=== PATIENT | male | born 1945 | race Caucasian/White ===

== ENCOUNTER 2017-10-23 14:01 | Inpatient (IN) ==
[2017-10-23] MEDS ORDERED: IPRATROPIUM/ALBUTEROL 3 ML AMPUL.NEB NEB ONE ×2 (14:12→14:16)
--- NOTE | 2017-10-23 14:19 | Emergency Department Note ---
General Adult HPI - General Chief complaint: Cold/Flu Symptoms Stated complaint: coughx 2 weeks, fever Time Seen by Provider: 10/23/17 14:02 Source: patient Mode of arrival: ambulatory Limitations: no limitations - History of Present Illness HPI Narrative: 72-year-old male presents with cough 2 weeks. He states he self diagnosed and thinks he has dengue fever. He has sinus congestion sinus pressure and has had low-grade fevers. He recently came back from the [facility] and before he went to the [facility] he had a cold along with his . Now he has had a cough that is stuck around for 2 weeks. He denies any shortness of breath. He states he has sinus pressure as well. He denies any lung issues in the past. He does have a fever of 100.9. - Related Data Home Medications Medication Instructions Recorded Confirmed ranitidine 150 mg tablet 150 mg PO QHS 05/13/16 10/15/17 vit C-vit Q-[id number] ox-lutein 1 cap PO QDAY cap 05/13/16 10/15/17 226 mg-200 unit-5 mg-0.8 mg capsule Previous Rx's Medication Instructions Recorded sodium bicarbonate 325 mg tablet 325 mg PO BID #180 tab 05/18/17 atorvastatin 80 mg tablet 80 mg PO QPM #90 tab 06/01/17 amlodipine 10 mg tablet 10 mg PO QDAY #90 tab 08/06/17 lisinopril 10 mg tablet 10 mg PO QDAY #90 tab 08/30/17 Allergies Allergy/AdvReac Type Severity Reaction Status Date / Time No Known Drug Allergies Allergy Verified 10/15/17 08:43 CT contrast AdvReac Intermediate Rash Uncoded 10/18/17 20:07 Review of Systems All systems ED: reviewed and negative except as stated. Past Medical History - Past Medical History Medical history: Reports: hyperlipidemia, hypertension, renal disease Psychiatric history: Reports: no psych history Surgical history ED: Reports: non-contributory Family history: Reports: non-contributory - Social History smoking status: Never smoker Alcohol use: Reports: None Drug use: Reports: none Physical Exam Limitations: no limitations General appearance: alert, in no apparent distress Head: atraumatic Eye: Present: normal appearance. Absent: conjunctival injection Neck: Present: normal inspection, full ROM Chest: Present: normal inspection, symmetric chest wall rise Respiratory: Present: other (Mild decrease in the lower lobes) Cardiovascular: Present: regular rate, normal heart sounds Abdominal: Present: soft, normal bowel sounds. Absent: tenderness Extremities: Present: normal inspection, full ROM Neurological: Present: alert, oriented X3 Psychiatric: Present: normal affect, normal mood Skin: Present: warm, dry, intact Course Course Narrative: Patient will admitted for pneumonia, fever high, procalcitonin 0.39 Vital Signs Temperature 100.9 F H 10/23/17 14:02 Pulse Rate 90 10/23/17 14:02 Respiratory Rate 16 10/23/17 14:02 Blood Pressure 158/61 10/23/17 14:02 Pulse Oximetry (%) 96 10/23/17 14:02 Temperature 102.4 F H 10/23/17 15:47 Pulse Rate 100 H 10/23/17 14:27 Respiratory Rate 18 10/23/17 14:27 Blood Pressure 158/61 10/23/17 14:02 Pulse Oximetry (%) 96 10/23/17 14:02 Medical Decision Making - Medical Records Medical records reviewed: Yes I reviewed the patient's medical records. ESR yesterday was 91 and CRP was 5 - Lab Data Lab results reviewed: Yes I reviewed the patient's lab results. Result diagrams: 10/23/17 14:30 10/23/17 14:30 Lab Results 10/23/17 10/23/17 10/23/17 Range/Units 14:30 14:30 14:30 WBC 9.2 (4.5-11.0) K/mcL RBC 3.98 L (4.50-5.90) M/mcL Hgb 11.9 L (13.5-16.5) g/dL Hct 35.2 L (41.0-55.0) % MCV 88.3 (80.0-100.0) fL MCH 29.8 (26.0-34.0) pg MCHC 33.8 (31.0-36.0) g/dL RDW 15.2 H (11.5-14.5) % Plt Count 222 (140-440) K/mcL MPV 7.7 (7.4-10.4) fL Total Counted 100 Seg Neutrophils % 83 H (38-78) % Band Neutrophils % 1 (0-10) % Lymphocytes % 4 L (15-49) % Monocytes % (Manual) 8 (1-12) % Reactive Lymphocytes 4 H (0-2) % Platelet Estimate Normal (NORMAL) RBC Morphology Normal (NORMAL) VBG Lactic Acid 1.8 (0.5-2.2) mmol/L Sodium 127 L (133-145) mmol/L Potassium 4.7 (3.3-5.1) mmol/L Chloride 92 L (96-108) mmol/L Carbon Dioxide 19 L (22-30) mmol/L Anion Gap 16.0 (8-16) BUN 41 H (8-23) mg/dl Creatinine 2.1 H (0.7-1.2) mg/dl GFR Calculation 30 Glucose 131 H (70-105) mg/dL Calcium 9.2 (8.6-10.4) mg/dl Total Bilirubin 0.7 (0.0-1.0) mg/dL AST 40 H (0-37) U/l ALT 24 (0-40) U/l Alkaline Phosphatase 107 (39-117) U/L Total Protein 7.1 (5.9-8.4) gm/dL Albumin 4.1 (3.2-5.2) gm/dL Globulin 3.0 (2.2-3.7) gm/dL Albumin/Globulin Ratio 1.4 (1.0-2.3) Procalcitonin (<0.10) ng/mL 10/23/17 Range/Units 14:30 WBC (4.5-11.0) K/mcL RBC (4.50-5.90) M/mcL Hgb (13.5-16.5) g/dL Hct (41.0-55.0) % MCV (80.0-100.0) fL MCH (26.0-34.0) pg MCHC (31.0-36.0) g/dL RDW (11.5-14.5) % Plt Count (140-440) K/mcL MPV (7.4-10.4) fL Total Counted Seg Neutrophils % (38-78) % Band Neutrophils % (0-10) % Lymphocytes % (15-49) % Monocytes % (Manual) (1-12) % Reactive Lymphocytes (0-2) % Platelet Estimate (NORMAL) RBC Morphology (NORMAL) VBG Lactic Acid (0.5-2.2) mmol/L Sodium (133-145) mmol/L Potassium (3.3-5.1) mmol/L Chloride (96-108) mmol/L Carbon Dioxide (22-30) mmol/L Anion Gap (8-16) BUN (8-23) mg/dl Creatinine (0.7-1.2) mg/dl GFR Calculation Glucose (70-105) mg/dL Calcium (8.6-10.4) mg/dl Total Bilirubin (0.0-1.0) mg/dL AST (0-37) U/l ALT (0-40) U/l Alkaline Phosphatase (39-117) U/L Total Protein (5.9-8.4) gm/dL Albumin (3.2-5.2) gm/dL Globulin (2.2-3.7) gm/dL Albumin/Globulin Ratio (1.0-2.3) Procalcitonin 0.39 (<0.10) ng/mL - Radiology Data Radiology results reviewed: Yes I reviewed the patient's radiology results. Chest x-ray shows 3 new opacities versus masses in his lungs. Will get a CT without contrast due to his allergy and poor renal function to assess Multiple nodular infiltrates in both lungs, affecting the right side greater than left. This is most likely due to pneumonia. Collagen vascular disease such as Isaias's granulomatosis is another consideration. Metastasis are unlikely. Very small right-sided pleural effusion Disposition Pt seen by [employer]/PA only: No Clinical Impression: Pneumonia Disposition: Xfer As Inpt ([facility]) Condition: Fair Referrals: Jacky Villegas MD [Primary Care Provider] -
[2017-10-23] MEDS ORDERED: 0.9 % SODIUM CHLORIDE 1,000 ML IV ONE (14:40)
[2017-10-23] MEDS ORDERED: ACETAMINOPHEN 325 MG TABLET PO ONE (14:57)
[2017-10-23 15:16] LABS: Mean Cell Volume 88.3 fL (80.0-100.0); Mean Corpuscular HGB Conc 33.8 g/dL (31.0-36.0); Mean Corpuscular Hemoglobin 29.8 pg (26.0-34.0); Platelet Count 222 K/mcL (140-440); RBC 3.98 M/mcL (4.50-5.90); Red Cell Distribution Width 15.2 % (11.5-14.5)
[2017-10-23] MEDS ORDERED: FLUCONAZOLE 100 MG TABLET PO ONE (15:19)
[2017-10-23] MEDS ORDERED: AZITHROMYCIN 500 MG in DEXTROSE 5% IN WATER 250 ML IV ONE (15:19)
[2017-10-23] MEDS ORDERED: cefTRIAXone 1 GM VIAL IV ONE (15:21)
--- NOTE | 2017-10-23 15:24 | Cat Scan Report ---
CLINICAL INFORMATION: Pulmonary nodule seen on chest x-ray with fever and cough for two weeks COMPARISON: Chest x-ray on 10/23/17 TECHNIQUE: 2.5 mm axial slices were obtained from the lung apices through the bases without intravenous contrast. Sagittal, coronal and axial reformatted images were processed and reviewed at bone, lung and soft tissue windows. 7 mm axial MIP images were also reconstructed. Radiation exposure was limited using FINDINGS: There are several nodular infiltrates in both lungs. Adjacent to the pleura laterally in the right upper lobe there is masslike infiltrate which measures 3.0 x 5.3 cm and contains several air bronchograms. Adjacent to the mediastinum medially in the right upper lobe at the same level there is another peripheral nodular infiltrate measuring 2.4 x 1.6 cm. Contiguous with the major fissure superiorly and laterally in the superior segment of the right lower lobe there is a similar-appearing 3.5 x 3.8 cm nodule with air bronchograms. Centrally in the left upper lobe there is a smaller nodular density with central air bronchograms measuring 1.6 x 2.2 cm. Very small right-sided pleural effusion is present. Adjacent to the pleural effusion and there is a band of consolidated lung parenchyma in the posterior and lateral basal segments. No pathologically enlarged lymph nodes are seen. Largest lymph node contains a fatty central hilum and is located anterior to the right mainstem bronchus. It measures 1.1 x 1.5 cm. The pulmonary arteries cannot be evaluated without contrast but they are not dilated. The heart is normal in size and contour. There is a moderate amount calcified plaque in the coronary arteries. The aorta is normal in caliber. IMPRESSION: Multiple nodular infiltrates in both lungs, affecting the right side greater than left. This is most likely due to pneumonia. Collagen vascular disease such as Isaias's granulomatosis is another consideration. Metastasis are unlikely. Very small right-sided pleural effusion Karin Salinas was called with the results Interpreted and Authenticated by: Facundo Castaneda 10/23/17
--- NOTE | 2017-10-23 15:27 | XRay Report ---
HISTORY: Reason for Exam:cough and fever FINDINGS: There are nodular infiltrates in the right mid and upper thorax. Is also small right-sided pleural effusion. The left lung appears clear. The heart size is normal. No enlarged lymph nodes are detected. IMPRESSION: masslike infiltrates in the right upper lobe. This is probably due to pneumonia. Collagen vascular disease or malignancy are less likely considerations. Interpreted and Authenticated by: Facundo Castaneda 10/23/17
[2017-10-23] MEDS ORDERED: cefTRIAXone 1 GM VIAL IV SCH ×2 (15:30→16:58)
[2017-10-23 15:38] LABS: ALT/SGPT 24 U/l (0-40); Albumin 4.1 gm/dL (3.2-5.2); Albumin/Globulin Ratio 1.4 (1.0-2.3); Alkaline Phosphatase 107 U/L (39-117); Blood Urea Nitrogen 41 mg/dl (8-23)
[2017-10-23] MEDS ORDERED: BENZONATATE 100 MG CAPSULE PO ONE (15:43)
[2017-10-23 15:50] LABS: Band Neutrophils % 1 % (0-10); Lymphocytes % 4 % (15-49); Monocytes % (Manual) 8 % (1-12); Platelet Estimate NORMAL (NORMAL); RBC Morphology NORMAL (NORMAL); Segmented Neutrophils % 83 % (38-78)
--- NOTE | 2017-10-23 16:32 | Internal Med History&Physical ---
Medical - H&P: HPI Patient information: Note initiated : 10/23/17 at 4:29 pm Service Date, if different from initiated Date: [] Patient: Toñito Mary 72 y/o M admitted on for coughx 2 weeks, fever. Chief Complaint: [] History of present illness: Mr. Mary is a 72 year old Male with multiple medical issues, presents to the ER with complaints of cough and fever going on for the last few days. According to the patient, he has not been feeling well for over 2 weeks, he notes he was slightly sick and felt cold during his recent trip to the [facility], he was on a cruise ship. He came back and in the first week of october, he began noticing some cough, this has progressively gotten worse, he notes that this is a dry cough, no aggravating or reliving factors, denies any shortness of breath , or hemoptysis. He admits to having some sinus congestion, he also notes that over the last 3 days he has felt a fever. He therefore presented to the hospital for further evaluation. The patient was seen by his PCP on the of this month for annual wellness exam, he had some blood tests ordered including an ESR, which is high at 91, crp is 5 The patient also notes taht over the last few months he has been dealing with a rash on his back and legs, thinks started between his two surgeris, diagnosed as eczema by dermatology and started on topical steroids which has helped, does not have rash at present Pt has HTN with CKD, protienuria is present, workup neg monoclonal proteins. In the ER the patient as febrile, with temp 102, otherwise stable, vitals, no increaed oxygen needs, Labs showed wbc 9.2 83% N, hb 11.9, decreased from baseline, plat 222 Na 127, Creat is 2.1, baseline is 1.7, his ua done yesterday showed 100 protein , previous ua had neg proteinuria. Patient CXR showed arely infiltrates/ masses, CT shows arely pna, possible wegners. Patient is being admitted ot the hospital for further management. All systems: reviewed and no additional remarkable complaints except as stated ( as per hpi rest neg) Medical - H&P: PMH Medical history: Medical History (Last Reviewed 10/15/17 @ 09:11 by Jacky Villegas MD) Hyperparathyroidism due to renal insufficiency (Chronic) CKD stage G3b/A3, GFR 30-44 and albumin creatinine ratio >300 mg/g (Chronic) Proteinuria (Chronic) Hypertensive renal disease (Chronic) Secondary hyperparathyroidism of renal origin (Chronic) Hyperkalemia (Chronic) Chronic Kidney Disease (Chronic) Skin lesion of face (Resolved) Renal cell carcinoma (Resolved) Malignant neoplasm prostate (Resolved) Overweight (Chronic) Osteoarthritis (Chronic) Hypertension, essential (Chronic) Hyperlipidemia (Chronic) Fracture of finger, closed (Resolved) Erectile dysfunction (Chronic) Colon adenoma (Chronic) Basal cell carcinoma of skin of face (Resolved) Actinic keratosis (Chronic) Surgical history: Past Surgical History (Last Reviewed 10/15/17 @ 09:11 by Jacky Villegas MD) H/O prostatectomy (Resolved 10/28/06) History of nephrectomy (Resolved) H/O colonoscopy (Resolved 08/11/13) History of cholecystectomy (Resolved) History of total left hip arthroplasty (Resolved) History of total right hip arthroplasty (Resolved) Pertinent family history: Family History (Last Reviewed 10/15/17 @ 09:11 by Jacky Villegas MD) Father Alzheimer's disease Diabetes mellitus Mother Malignant neoplasm of breast Medical - H&P: Meds Home Medications Medication Instructions Recorded Confirmed Type ranitidine 150 mg tablet 150 mg PO QHS 05/13/16 10/15/17 History vit C-vit A-sybxht-mukg ox-lutein 1 cap PO QDAY cap 05/13/16 10/15/17 History 226 mg-200 unit-5 mg-0.8 mg capsule sodium bicarbonate 325 mg tablet 325 mg PO BID #180 tab 05/18/17 10/15/17 Rx atorvastatin 80 mg tablet 80 mg PO QPM #90 tab 06/01/17 10/15/17 Rx amlodipine 10 mg tablet 10 mg PO QDAY #90 tab 08/06/17 10/15/17 Rx lisinopril 10 mg tablet 10 mg PO QDAY #90 tab 08/30/17 10/15/17 Rx Allergies Allergy/AdvReac Type Severity Reaction Status Date / Time No Known Drug Allergies Allergy Verified 10/15/17 08:43 CT contrast AdvReac Intermediate Rash Uncoded 10/18/17 20:07 Medical - H&P: Exam - Constitutional Vitals: Temp Pulse Resp BP Pulse Ox 102.4 F H 100 H 18 158/61 96 10/23/17 15:47 10/23/17 14:27 10/23/17 14:27 10/23/17 14:02 10/23/17 14:02 Exam: GENERAL: The patient is a well-developed, well-nourished in no apparent distress. Is alert and oriented x3. VITAL SIGNS: Reviewed and as noted elsewhere. HEENT: Head is normocephalic and atraumatic. Extraocular muscles are intact. Pupils are equal, round, and reactive to light. Nares appeared normal. Mouth appears any without lesions. Mucous membranes are moist. NECK: Normal to inspection, Supple, No lymphadenopathy or thyromegaly. LUNGS: Air entry equal on both sides, no wheezing, crackles or rhonchi noted. No accessory muscles of respiration HEART: Regular rate and rhythm normal, S1 and S2 heard, no Gallop, S3 or Rub Noted, No Gross murmur heard. ABDOMEN: Soft, nontender, and nondistended. Positive bowel sounds. No hepatosplenomegaly was noted. EXTREMITIES: No cyanosis, clubbing, rash, lesions or edema. NEUROLOGIC: Cranial nerves II through XII are grossly intact. Motor and Sensory System Grossly Intact PSYCHIATRIC: Normal affect, Normal Mood. Appropriate Behavior. SKIN: No ulceration or wounds noted, No jaundice, No rash noted. Medical - H&P: Reslt - Labs CBC & Chem 7: 10/23/17 14:30 10/23/17 14:30 Labs: Short CBC 10/23/17 Range/Units 14:30 WBC 9.2 (4.5-11.0) K/mcL Hgb 11.9 L (13.5-16.5) g/dL Hct 35.2 L (41.0-55.0) % Plt Count 222 (140-440) K/mcL BMP 10/23/17 14:30 Sodium 127 L Potassium 4.7 Chloride 92 L Carbon Dioxide 19 L BUN 41 H Creatinine 2.1 H Glucose 131 H Calcium 9.2 Liver Function 10/23/17 Range/Units 14:30 Total Bilirubin 0.7 (0.0-1.0) mg/dL AST 40 H (0-37) U/l ALT 24 (0-40) U/l Alkaline Phosphatase 107 (39-117) U/L Albumin 4.1 (3.2-5.2) gm/dL Medical - H&P: A/P - Narrative A/P Narrative: A/P community Acquired Pneumonia- Pt likely has atypical CAP, on antibiotics for same, rocephin and zithromax. Sputum cx ordered, blood cx pending. The however has atypical pna, involving both lobes, will check mycoplasma, legionella ( recent cruise ship vacation), and strep ur antigen. Patient however also has some h/o skin rash, sinus congestion, proteinuria on ua , elevated esr, which calls to look for an autoimmune process, PCP has already sent [facility], testing, I will add anca, c3 and c4, its seems his seroiologies for hep have been negative in the past, hiv is also negative Will repeat ua and check prot creat ratio. RACHAEL on CKD=- Worsening renal failure, noted increase in urine protein, monitor for now, if worsens consider nephrology consult. NO hematuria on ua yesterday, HTN/HLD- Resume home meds, pt not in severe sepsis or septic shock h/o renal cancer and prostate cancer- psa neg on recent check, he has follow up abdominal mri scheduled DVT hep sq Diet Regular Full code. Social History - Social History household members: spouse housing: house lives independently: Yes marital status: education level: college occupational status: retired occupation: [employer] - Tobacco smoking status: Never smoker - Alcohol alcohol intake frequency: a few times a week
[2017-10-23] MEDS ORDERED: ALBUTEROL SULFATE 2.5 MG/3 ML NEBULIZER NEB PRN (16:58)
[2017-10-23] MEDS ORDERED: ONDANSETRON ODT 4 MG TABLET SL PRN (16:58)
[2017-10-23] MEDS ORDERED: ACETAMINOPHEN 325 MG TABLET PO PRN (16:58)
[2017-10-23] MEDS ORDERED: NALOXONE HCL 0.4 MG/ML VIAL IV PRN (16:58)
[2017-10-23] MEDS ORDERED: MAGNESIUM HYDROXIDE 30 ML ORAL.SUSP PO PRN (16:58)
[2017-10-23 17:21] LABS: Appearance,Urine CLEAR; Bacteria,Urine 0 /hpf (0); Bilirubin,Urine NEG (NEG); Color,Urine YELLOW; Glucose,Urine (UA) NEGATIVE (NEG); Leukocyte Esterase,Urine NEG /uL (NEG); Mucus,Urine FEW /hpf (0); Protein,Urine 100 mg/dL (NEG); Specific Gravity,Urine 1.018 (1.000-1.035); Urine Amorphous Crystals FEW /hpf (0); Urine Blood NEG mg/dL (<0.03); Urine RBC 1 /hpf (0-1); Urine Squamous Epithelial Cell 0 /hpf (0-4); Urine WBC 1 /hpf (0-4)
[2017-10-23 17:27] LABS: Complement C3 154.7 mg/dl (90-180)
--- NOTE | 2017-10-23 17:42 | Emergency Department Note ---
ED Note Addendum Note Addendum: I saw this patient with Karin Salinas PA-C and agree with her evaluation management documentation. I had discussions with both her and Dr. Perez the hospitalist regarding this patient's atypical pneumonia and a picture. In particular I reviewed his laboratory and imaging as well as examined the patient myself-I am concerned that this could be fungal versus atypical and so we gave him a dose of fluconazole as well as other antibiotics here in the ER. Autoimmune disease/rheumatologic disease is also on the differential.
[2017-10-23] MEDS: 0.9 % SODIUM CHLORIDE 1,000 ML IV SCH (18:45)
[2017-10-23] MEDS: BENZONATATE 100 MG CAPSULE PO PRN (19:25)
[2017-10-23] MEDS: ATORVASTATIN 20 MG TABLET PO SCH (21:28)
[2017-10-23] MEDS: SODIUM BICARBONATE 650 MG TABLET PO SCH (21:28)
[2017-10-23] MEDS: FAMOTIDINE 20 MG TABLET PO SCH (21:29)
[2017-10-23] MEDS: LISINOPRIL 10 MG TABLET PO SCH (21:29)
[2017-10-23] MEDS: HEPARIN 5,000 UNIT/ML VIAL SQ SCH (21:29)
[2017-10-23] MEDS: 0.9 % SODIUM CHLORIDE 10 ML SYRINGE IV SCH (21:33)
[2017-10-24] MEDS: 0.9 % SODIUM CHLORIDE 1,000 ML IV SCH ×2 (04:39→15:30)
[2017-10-24] MEDS: BENZONATATE 100 MG CAPSULE PO PRN ×2 (04:39→20:52)
[2017-10-24] MEDS: 0.9 % SODIUM CHLORIDE 10 ML SYRINGE IV SCH ×3 (04:42→20:52)
[2017-10-24 05:19] LABS: Basophils # (Auto) 0 K/mcL (0.0-0.3); Basophils % (Auto) 0.2 % (0.0-2.0); Eosinophils # (Auto) 0 K/mcL (0.0-0.7); Eosinophils % (Auto) 0 % (0.0-7.0); Granulocytes % (Auto) 84.2 % (38.0-78.0); Lymphocytes # (Auto) 0.5 K/mcL (1.5-4.8); Lymphocytes % (Auto) 7.3 % (15.5-49.0); Mean Cell Volume 88.8 fL (80.0-100.0); Mean Corpuscular HGB Conc 34.4 g/dL (31.0-36.0); Mean Corpuscular Hemoglobin 30.5 pg (26.0-34.0); Monocytes # (Auto) 0.5 K/mcL (0.1-0.9); Monocytes % (Auto) 8.3 % (1.0-12.0); Platelet Count 164 K/mcL (140-440); RBC 3.47 M/mcL (4.50-5.90)
[2017-10-24 05:32] LABS: ALT/SGPT 24 U/l (0-40); Albumin 3.2 gm/dL (3.2-5.2); Albumin/Globulin Ratio 1.2 (1.0-2.3); Alkaline Phosphatase 86 U/L (39-117); Bilirubin,Direct < 0.2 mg/dL (0.0-0.3); Blood Urea Nitrogen 38 mg/dl (8-23); Gamma Glutamyl Transpeptidase 33 U/L (8-61); Uric Acid 6.1 mg/dL (2.5-8.0)
[2017-10-24] MEDS: cefTRIAXone 1 GM VIAL IV SCH (10:03)
[2017-10-24] MEDS: amLODIPine 10 MG TABLET PO SCH (10:03)
[2017-10-24] MEDS: SODIUM BICARBONATE 650 MG TABLET PO SCH ×2 (10:03→20:51)
[2017-10-24] MEDS: HEPARIN 5,000 UNIT/ML VIAL SQ SCH ×2 (10:03→20:52)
[2017-10-24] MEDS: VIT A,C & E/LUTEIN/MINERALS TABLET PO SCH (10:03)
[2017-10-24] MEDS: AZITHROMYCIN 250 MG TABLET PO SCH (10:04)
[2017-10-24] MEDS ORDERED: IPRATROPIUM/ALBUTEROL 3 ML AMPUL.NEB NEB ONE (15:26)
[2017-10-24] MEDS: IPRATROPIUM/ALBUTEROL 3 ML AMPUL.NEB NEB SCH ×2 (15:30→20:28)
--- NOTE | 2017-10-24 15:30 | Internal Med Progress Note ---
Medical - PN: Subj Patient information: Note initiated : 10/24/17 at 3:15 pm Service Date, if different from initiated Date: [] Patient: Toñito Mary 72 y/o M admitted on 10/23/17 for coughx 2 weeks, fever. Chief Complaint: [] Interval history: Mr. Mary is a 72 year old Male with multiple medical issues, presents to the ER with complaints of cough and fever going on for the last few days. According to the patient, he has not been feeling well for over 2 weeks, he notes he was slightly sick and felt cold during his recent trip to the [facility], he was on a cruise ship. He came back and in the first week of october, he began noticing some cough, this has progressively gotten worse, he notes that this is a dry cough, no aggravating or reliving factors, denies any shortness of breath , or hemoptysis. He admits to having some sinus congestion, he also notes that over the last 3 days he has felt a fever. He therefore presented to the hospital for further evaluation. The patient was seen by his PCP on the of this month for annual wellness exam, he had some blood tests ordered including an ESR, which is high at 91, crp is 5 The patient also notes taht over the last few months he has been dealing with a rash on his back and legs, thinks started between his two surgeris, diagnosed as eczema by dermatology and started on topical steroids which has helped, does not have rash at present Pt has HTN with CKD, protienuria is present, workup neg monoclonal proteins. In the ER the patient as febrile, with temp 102, otherwise stable, vitals, no increaed oxygen needs, Labs showed wbc 9.2 83% N, hb 11.9, decreased from baseline, plat 222 Na 127, Creat is 2.1, baseline is 1.7, his ua done yesterday showed 100 protein , previous ua had neg proteinuria. Patient CXR showed arely infiltrates/ masses, CT shows arely pna, possible wegners. Patient is being admitted ot the hospital for further management. 10/24 Patient seen and examined, no acute overnight events, continues to remain febrile, received Tylenol with improvement in fever. Still has significant amount of cough. Patient's mycoplasma as well as strep antigen is negative, Legionella antigen pending. WBC count is normal. Renal function improved creatinine is 1.7. Patient reported significant benefit from nebulizer treatment yesterday in the ED. Given his presence of cough. I will start him on budesonide and albuterol ipratropium nebulizer for symptomatic relief. The patient does not have any wheezing on exam, the patient reports no benefit for discontinue the nebulizer treatment Pertinent ROS: Denies headache, dizziness Denies chest pain, palpitations Cough present, denies acute shortness of breath Denies abdominal pain, nausea or vomiting. - Constitutional Vitals: Vital Signs Temp Pulse Resp BP Pulse Ox 100.2 F H 71 18 131/69 93 10/24/17 11:41 10/24/17 11:41 10/24/17 11:41 10/24/17 11:41 10/24/17 11:41 Period Temp Pulse Resp BP Sys/Mendez Pulse Ox Last 24 Hr 98.4 F-102.4 F 69-88 16-20 118-158/58-75 91-97 Intake and Output 10/24/17 10/24/17 10/24/17 05:59 13:59 21:59 Intake Total 1240 / 1240 1330 / 1330 Output Total 825 / 825 650 / 650 Balance 415 / 415 680 / 680 Intake & Output: Intake & Output 10/24/17 10/24/17 10/24/17 05:59 13:59 21:59 Intake Total 1240 / 1240 1330 / 1330 Output Total 825 / 825 650 / 650 Balance 415 / 415 680 / 680 Intake: IV 990 / 990 Sodium Chloride 0.9% 1,000 ml @ 990 / 990 100 mls/hr IV .Q10H [facility] Rx#: [id number] Oral 250 / 250 1330 / 1330 Output: Void Amount 825 / 825 650 / 650 Other: Meal Lunch Percent of Meal Consumed 100% Feeding Ability Independent # Voids 1 Exam: Constitutional; Afebrile, cooperative, alert, not in distress. Eyes- No icterus, , No periorbital swelling Ears- Ext ear normal, hearing normal to conversation. Neck- Midline trachea, supple Respiratory system: Air Entry equal on both sides, No crackles or wheezing, no rhonchi. CVS- Rate rhythm regular, S1,S2 heard, no gallop, no rub. 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 Medical - PN: Obj Da - Labs CBC & Chem 7: 10/24/17 03:45 10/24/17 03:45 Labs: Abnormal Lab Results 10/24/17 10/24/17 10/23/17 03:45 03:45 16:35 RBC 3.47 L Hgb 10.6 L Hct 30.8 L RDW 15.0 H Gran % 84.2 H Lymph % (Auto) 7.3 L Lymph # (Auto) 0.5 L Seg Neutrophils % Lymphocytes % Reactive Lymphocytes Sodium 129 L Chloride Carbon Dioxide 19 L BUN 38 H Creatinine 1.7 H Glucose 111 H Calcium 8.5 L AST 43 H Lactate Dehydrogenase 256 H Urine Protein 100 A Urine Urobilinogen 2.0 A Amorphous Crystals Few A U [place]out[place] Prot/Creat Ratio 10/23/17 10/23/17 10/23/17 16:35 14:30 14:30 RBC 3.98 L Hgb 11.9 L Hct 35.2 L RDW 15.2 H Gran % Lymph % (Auto) Lymph # (Auto) Seg Neutrophils % 83 H Lymphocytes % 4 L Reactive Lymphocytes 4 H Sodium 127 L Chloride 92 L Carbon Dioxide 19 L BUN 41 H Creatinine 2.1 H Glucose 131 H Calcium AST 40 H Lactate Dehydrogenase Urine Protein Urine Urobilinogen Amorphous Crystals U [place] Prot/Creat Ratio 0.48 H Meds: Medications Acetaminophen (Tylenol) 650 mg PO Q6HP PRN PRN Reason: PAIN/FEVER > 101 Last Admin: 10/23/17 21:26 Dose: 650 mg Albuterol/Ipratropium (Duoneb) 3 ml NEB TID [facility] Amlodipine Besylate (Norvasc) 10 mg PO QDAY [facility] Last Admin: 10/24/17 10:03 Dose: 10 mg Atorvastatin Calcium (Lipitor) 80 mg PO HS [facility] Last Admin: 10/23/17 21:28 Dose: 80 mg Azithromycin (Zithromax) 250 mg PO DAILY [facility] Stop: 10/27/17 09:01 Last Admin: 10/24/17 10:04 Dose: 250 mg Benzonatate (Tessalon) 200 mg PO TIDP PRN PRN Reason: Cough Last Admin: 10/24/17 04:39 Dose: 200 mg Ceftriaxone Sodium (Rocephin) 1 gm IV DAILY [facility] Last Admin: 10/24/17 10:03 Dose: 1 gm Famotidine (Pepcid) 40 mg PO HS [facility] Last Admin: 10/23/17 21:29 Dose: 40 mg Heparin Sodium (Porcine) (Heparin) 5,000 unit SQ Q12 [facility] Last Admin: 10/24/17 10:03 Dose: 5,000 unit Sodium Chloride (Sodium Chloride 0.9%) 1,000 mls @ 100 mls/hr IV .Q10H [facility] Stop: 10/24/17 22:57 Last Admin: 10/24/17 04:39 Dose: 100 mls/hr Lisinopril (Zestril) 10 mg PO HS [facility] Last Admin: 10/23/17 21:29 Dose: 10 mg Magnesium Hydroxide (Milk Of Magnesia) 30 ml PO DAILYP PRN PRN Reason: Constipation Multivitamins/Minerals (Ocuvite) 1 tab PO DAILY [facility] Last Admin: 10/24/17 10:03 Dose: 1 tab Naloxone HCl (Narcan) 0.1 mg IV Q2MIN PRN PRN Reason: Opiate Reversal Ondansetron HCl (Zofran Odt) 4 mg SL Q6HP PRN PRN Reason: Nausea And Vomiting Sodium Bicarbonate (Sodium Bicarbonate) 325 mg PO BID [facility] Last Admin: 10/24/17 10:03 Dose: 325 mg Sodium Chloride (Saline Flush) 10 ml IV Q8 [facility] Last Admin: 10/24/17 13:27 Dose: Not Given Medical - PN: A/P - Time Spent With Patient Total time spent is greater than 50% in coordination of care (as documented) at patient's floor/unit and/or counseling patient: - Narrative A/P Narrative: A/P community Acquired Pneumonia- likeky cap, still febrile, await autoimmne workup. cultures neg so far. cough- budesonide, duonebs and tessolon perles. RACHAEL on CKD=-creat improved, no hematuria, prot creat ratio 0.48, somewhat worse , but not significantly so. HTN/HLD- Resume home meds, pt not in severe sepsis or septic shock h/o renal cancer and prostate cancer- psa neg on recent check, he has follow up abdominal mri scheduled DVT hep sq Diet Regular Full code.
[2017-10-24] MEDS: LISINOPRIL 10 MG TABLET PO SCH (20:51)
[2017-10-24] MEDS: FAMOTIDINE 20 MG TABLET PO SCH (20:51)
[2017-10-24] MEDS: ATORVASTATIN 20 MG TABLET PO SCH (20:52)
[2017-10-25] MEDS: 0.9 % SODIUM CHLORIDE 10 ML SYRINGE IV SCH ×2 (02:57→04:39)
[2017-10-25] MEDS: BENZONATATE 100 MG CAPSULE PO PRN ×2 (04:36→12:01)
[2017-10-25 04:53] LABS: Basophils # (Auto) 0 K/mcL (0.0-0.3); Basophils % (Auto) 0.3 % (0.0-2.0); Eosinophils # (Auto) 0 K/mcL (0.0-0.7); Eosinophils % (Auto) 0.3 % (0.0-7.0); Granulocytes % (Auto) 74.6 % (38.0-78.0); Lymphocytes # (Auto) 0.7 K/mcL (1.5-4.8); Lymphocytes % (Auto) 11.3 % (15.5-49.0); Mean Cell Volume 88.4 fL (80.0-100.0); Mean Corpuscular HGB Conc 34.3 g/dL (31.0-36.0); Mean Corpuscular Hemoglobin 30.3 pg (26.0-34.0); Monocytes # (Auto) 0.9 K/mcL (0.1-0.9); Monocytes % (Auto) 13.5 % (1.0-12.0); Platelet Count 164 K/mcL (140-440); RBC 3.31 M/mcL (4.50-5.90); Red Cell Distribution Width 15.1 % (11.5-14.5)
[2017-10-25 05:32] LABS: ALT/SGPT 50 U/l (0-40); Albumin 2.8 gm/dL (3.2-5.2); Alkaline Phosphatase 89 U/L (39-117); Bilirubin,Direct < 0.2 mg/dL (0.0-0.3); Blood Urea Nitrogen 36 mg/dl (8-23); Gamma Glutamyl Transpeptidase 38 U/L (8-61)
[2017-10-25] MEDS: SODIUM BICARBONATE 650 MG TABLET PO SCH (08:36)
[2017-10-25] MEDS: VIT A,C & E/LUTEIN/MINERALS TABLET PO SCH (08:37)
[2017-10-25] MEDS: amLODIPine 10 MG TABLET PO SCH (08:37)
[2017-10-25] MEDS: HEPARIN 5,000 UNIT/ML VIAL SQ SCH (08:37)
[2017-10-25] MEDS: cefTRIAXone 1 GM VIAL IV SCH (08:37)
[2017-10-25] MEDS: AZITHROMYCIN 250 MG TABLET PO SCH (08:37)
--- NOTE | 2017-10-25 09:11 | Discharge Summary ---
Medical - DS: Prov Patient information: Note initiated : 10/25/17 at 9:05 am Service Date, if different from initiated Date: [] Patient: Toñito Mary 72 y/o M admitted on 10/23/17 for coughx 2 weeks, fever. Chief Complaint: [] Date of admission: 10/23/17 16:55 Discharge date: 10/25/17 Primary care physician: Jacky Villegas Admitting clinician: Len Perez Consults: 10/23/17 15:22 Consult to Physician [CONS] Stat Comment: Consulting Provider: Len Perez Reason For Exam: Physician to Consult Discharging clinician: Len Perez Medical - DS: Meds - Discharge Medications Prescriptions: Benzonatate [Tessalon] 200 mg PO TIDP PRN #60 cap PRN Reason: Cough Levofloxacin 750 mg PO Q48H #3 tab Active and Home Medications: Home Medications ranitidine 150 mg tablet 150 mg PO QHS 05/13/16 [History Confirmed 10/23/17 Last Taken 10/22/17 19:00] vit C-vit R-hpwhbu-[id number] ox-lutein 226 mg-200 unit-5 mg-0.8 mg capsule 1 cap PO QDAY cap 05/13/16 [History Confirmed 10/23/17 Last Taken 10/23/17 06:00] sodium bicarbonate 325 mg tablet 325 mg PO BID #180 tab 05/18/17 [Rx Confirmed 10/23/17 Last Taken 10/23/17 06:00] atorvastatin 80 mg tablet 80 mg PO QPM #90 tab 06/01/17 [Rx Confirmed 10/23/17 Last Taken 10/22/17 19:00] amlodipine 10 mg tablet 10 mg PO QDAY #90 tab 08/06/17 [Rx Confirmed 10/23/17 Last Taken 10/23/17 06:00] lisinopril 10 mg tablet 10 mg PO QDAY #90 tab 08/30/17 [Rx Confirmed 10/23/17 Last Taken 10/22/17 19:00] Medical - DS: Hosp Hospital course: Mr. Mary is a 72 year old Male with multiple medical issues, presents to the ER with complaints of cough and fever going on for the last few days. According to the patient, he has not been feeling well for over 2 weeks, he notes he was slightly sick and felt cold during his recent trip to the [facility], he was on a cruise ship. He came back and in the first week of october, he began noticing some cough, this has progressively gotten worse, he notes that this is a dry cough, no aggravating or reliving factors, denies any shortness of breath , or hemoptysis. He admits to having some sinus congestion, he also notes that over the last 3 days he has felt a fever. He therefore presented to the hospital for further evaluation. The patient was seen by his PCP on the of this month for annual wellness exam, he had some blood tests ordered including an ESR, which is high at 91, crp is 5, The patient also notes taht over the last few months he has been dealing with a rash on his back and legs, thinks started between his two surgeris, diagnosed as eczema by dermatology and started on topical steroids which has helped, does not have rash at present In the ER the patient as febrile, with temp 102, otherwise stable, vitals, no increaed oxygen needs, Labs showed wbc 9.2 83% N, hb 11.9, decreased from baseline, plat 222 Na 127, Creat is 2.1, baseline is 1.7, his ua done yesterday showed 100 protein , previous ua had neg proteinuria. Patient CXR showed arely infiltrates/ masses, CT shows arely pna, possible wegners. Patient is being admitted ot the hospital for further management. PNA- Treated with rocephin and zithromax with good response, patient afbrile today, microbiology has been negative so far, will discharge pt home on oral levofloxacin 750mg q48hrs, dose adjusted for renal function RACHAEL on ckd- pt has baseline creat of 1.7, Presented to the hospital with creat of 2.1, at the time of discharge his creat is 1.8 There is a concern for an autoimmune process like wegners based on the CT report , he also has a rash and had sinus issues, I have ordered ANCA test, results are not back yet, PCP to follow up results for same. Should anca be positive, pt to be referred to Dr Randhawa Rest of the stay in the hospital was unremarkable, no changes made to the medical center home med list. Discharge diagnosis: pneumonia - Time Spent with Patient Total time spent providing and/or coordinating discharge services: Less than 30 minutes Medical - DS: Exam - Constitutional Vitals: Vital Signs Temp Pulse Pulse Resp BP Pulse Ox 10/25/17 06:34 98 F 18 121/66 92 10/25/17 02:55 98.6 F 70 20 115/67 91 10/24/17 23:27 98 F 70 21 118/68 94 10/24/17 20:28 78 20 10/24/17 18:39 100.4 F H 75 20 120/62 90 10/24/17 16:00 100.4 F H 81 20 131/71 94 10/24/17 15:31 80 18 10/24/17 11:41 100.2 F H 71 18 131/69 93 Intake and Output 10/24/17 10/25/17 10/25/17 21:59 05:59 13:59 Intake Total 2600 / 2600 1650 / 1650 Output Total 625 / 625 1100 / 1100 250 / 250 Balance 1974 / 1974 550 / 550 -250 / -250 Intake: IV 1000 / 1000 1000 / 1000 Sodium Chloride 0.9% 1,000 ml @ 1000 / 1000 1000 / 1000 100 mls/hr IV .Q10H [facility] Rx#: [id number] Oral 1600 / 1600 650 / 650 Output: Void Amount 625 / 625 1100 / 1100 250 / 250 Other: Meal Dinner Percent of Meal Consumed 75% Stool Size Moderate Stool Color Brown Stool Consistency Loose # Voids 1 1 1 Weight 208 lb 8 oz Additional comments: Constitutional; Afebrile, cooperative, alert, not in distress. Eyes- No icterus, , No periorbital swelling Ears- Ext ear normal, hearing normal to conversation. Neck- Midline trachea, supple Respiratory system: Air Entry equal on both sides, No crackles or wheezing, no rhonchi. CVS- Rate rhythm regular, S1,S2 heard, no gallop, no rub. 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 Medical - DS: Data Labs on day of discharge: Labs from last 24 hours 10/25/17 10/25/17 03:50 03:50 WBC 6.4 RBC 3.31 L Hgb 10.1 L Hct 29.3 L MCV 88.4 MCH 30.3 MCHC 34.3 RDW 15.1 H Plt Count 164 MPV 8.1 Gran % 74.6 Lymph % (Auto) 11.3 L [place] % (Auto) 13.5 H Eos % (Auto) 0.3 Baso % (Auto) 0.3 Gran # 4.7 Lymph # (Auto) 0.7 L [place] # (Auto) 0.9 Eos # (Auto) 0 Baso # (Auto) 0 Sodium 131 L Potassium 4.7 Chloride 100 Carbon Dioxide 18 L Anion Gap 13.0 BUN 36 H Creatinine 1.8 H GFR Calculation 37 Glucose 108 H Uric Acid 7.0 Calcium 8.6 Phosphorus 3.6 Magnesium 2.1 Total Bilirubin 0.5 Direct Bilirubin < 0.2 GGT 38 AST 82 H ALT 50 H Alkaline Phosphatase 89 Lactate Dehydrogenase 356 H Total Protein 5.7 L Albumin 2.8 L Globulin 2.9 Albumin/Globulin Ratio 1.0 Triglycerides 123 Preliminary micro results at discharge 10/23/17 15:20 Blood Culture - Preliminary Blood 10/23/17 15:28 Blood Culture - Preliminary Blood Medical - DS: A/P - Patient/Caregiver Discharge Instructions Activity: as per physical therapy Diet: Renal Additional Instructions: Please take levofloxcin 1 pill every other day Keep your self well hydrated Your labs for autoimmune process are still pending, please discuss results with your PCP Follow up with PCP in 1 -2 weeks Go to the ER if worsening conditions, chest pain, shortness of breath or any other acute concern. - Follow up Plan Follow up with: Jacky Villegas MD [Primary Care Provider] - Disposition: Home, Self-Care Prognosis: Fair Rehab Potential: Fair I certify that the patient requires SNF services: No Overall status at discharge: patient is progressing back to baseline
[2017-10-25] MEDS: IPRATROPIUM/ALBUTEROL 3 ML AMPUL.NEB NEB SCH (09:44)
[2017-10-28 10:01] LABS: ANCA Screen NEGATIVE (NEGATIVE); Legionella pneumophilia Ag, Ur NOT DETECTED; Myeloperoxidase Antibody <1.0 AI (<1.0)
== END 2017-10-25 12:59 | disposition home or self-care (01) | DRG 194 ==
LOC: ED 14:01 → MEDSUR 16:50
PROVIDERS: ADMIT Internal Medicine; ATTEND Internal Medicine